=== PATIENT | female | born 1995 | race American Indian/Alaskan Native ===

== ENCOUNTER 2018-04-16 15:44 | Emergency (ER) | payer OTHER ==
[2018-04-16 16:41] LABS: Hemoglobin 13.6 gm/dl (10.1-14.3); Mean Corpuscular HGB Conc 35 % (30-34); Mean Corpuscular Hemoglobin 31 pg (28-32); Mean Corpuscular Volume 90 fl (79-97); Platelet Count 161 K/mm3 (140-440); Red Blood Count 4.34 M/mm3 (3.65-5.03); Red Cell Distribution Width 13.6 % (13.2-15.2)
[2018-04-16 17:03] LABS: BUN/Creatinine Ratio 24; Blood Urea Nitrogen 12 mg/dL (7-17); Calcium 8.2 mg/dL (8.4-10.2); Hemolysis Index 8
[2018-04-16 17:58] LABS: Bacteria,Urine 1+ /HPF (Negative); Bilirubin,Urine NEG (Negative); Blood,Urine SM (Negative); Color,Urine Yellow (Yellow); HCG Qualitative,Urine Negative (Negative); Mucus,Urine 3+ /HPF; Urobilinogen,Urine < 2.0 mg/dL (<2.0)
--- NOTE | 2018-04-16 18:29 | Emergency Department Report ---
ED Seizure HPI - General Chief Complaint: Seizure Stated Complaint: SEIZURE/HEAD/LEG/ARM PAIN Time Seen by Provider: 04/16/18 18:28 Source: patient Mode of arrival: Ambulatory Limitations: No Limitations - History of Present Illness Initial Comments: Patient had no seizure while she was awoke this afternoon. According to the patient's mom who is currently at her besides, patient has not been compliant with taking her Keppra medication. Patient mom said the patient does not like to take her Keppra medication. Complaint: seizure -: Sudden Description of Episode: loss of consciousness, tonic-clonic movement -: minutes(s) (1) Witnessed:: Yes Trauma: Yes (fell on her face.) Seizure History: known seizure disorder Place: work Possible Precipitating Event: head injury, other (Noncompliant with seizure medication.) Associated Symptoms: denies other symptoms Treatments Prior to Arrival: none - Related Data Home Medications Medication Instructions Recorded Confirmed Last Taken LORazepam [Ativan] 0.5 mg PO PRN 04/16/18 04/16/18 Unknown Topiramate [Topamax] 200 mg PO BID 04/16/18 04/16/18 Unknown levETIRAcetam [Keppra] 500 mg PO BID 04/16/18 04/16/18 Unknown Previous Rx's Medication Instructions Recorded Last Taken Type Topiramate [Topamax] 200 mg PO BID #60 tablet 04/16/18 Unknown Rx levETIRAcetam [Keppra] 500 mg PO BID #60 tablet 04/16/18 Unknown Rx Allergies Allergy/AdvReac Type Severity Reaction Status Date / Time No Known Allergies Allergy Unverified 04/16/18 16:04 ED Review of Systems ROS: Stated complaint: SEIZURE/HEAD/LEG/ARM PAIN Other details as noted in HPI Comment: All other systems reviewed and negative Constitutional: denies: chills, fever Eyes: denies: vision change ENT: denies: ear pain, dental pain Respiratory: denies: cough, shortness of breath Cardiovascular: denies: chest pain, palpitations Endocrine: no symptoms reported Gastrointestinal: denies: abdominal pain, nausea, vomiting, diarrhea Genitourinary: denies: urgency, dysuria, frequency, hematuria Musculoskeletal: denies: back pain, joint swelling, arthralgia Skin: denies: rash, lesions, change in color Neurological: headache. denies: numbness, paresthesias Psychiatric: denies: anxiety, depression Hematological/Lymphatic: denies: easy bleeding, easy bruising ED Past Medical Hx - Past Medical History Previous Medical History?: Yes Hx Seizures: Yes - Surgical History Past Surgical History?: No - Social History Smoking Status: Never Smoker Substance Use Type: Prescribed - Medications Home Medications: Home Medications Medication Instructions Recorded Confirmed Last Taken Type LORazepam [Ativan] 0.5 mg PO PRN 04/16/18 04/16/18 Unknown History Topiramate [Topamax] 200 mg PO BID 04/16/18 04/16/18 Unknown History Topiramate [Topamax] 200 mg PO BID #60 tablet 04/16/18 Unknown Rx levETIRAcetam [Keppra] 500 mg PO BID 04/16/18 04/16/18 Unknown History levETIRAcetam [Keppra] 500 mg PO BID #60 tablet 04/16/18 Unknown Rx ED Physical Exam - General Limitations: No Limitations General appearance: alert, in no apparent distress - Head Head exam: Present: normocephalic, other (Facial contusions.) - Eye Eye exam: Present: normal appearance, PERRL, EOMI. Absent: scleral icterus Pupils: Present: normal accommodation - ENT ENT exam: Present: normal exam, normal orophraynx, mucous membranes moist - Neck Neck exam: Present: normal inspection. Absent: tenderness, full ROM - Respiratory Respiratory exam: Present: normal lung sounds bilaterally. Absent: respiratory distress, wheezes, rhonchi - Cardiovascular Cardiovascular Exam: Present: regular rate, normal rhythm, normal heart sounds - GI/Abdominal GI/Abdominal exam: Present: soft, normal bowel sounds. Absent: distended, tenderness, guarding, rebound - Extremities Exam Extremities exam: Present: normal inspection, full ROM, normal capillary refill. Absent: pedal edema - Back Exam Back exam: Present: normal inspection, full ROM. Absent: tenderness, CVA tenderness (R), CVA tenderness (L) - Neurological Exam Neurological exam: Present: alert, oriented X3, CN II-XII intact - Psychiatric Psychiatric exam: Present: normal affect, normal mood, flat affect - Skin Skin exam: Present: warm, dry, intact, normal color. Absent: rash ED Course Vital Signs 04/16/18 04/16/18 04/16/18 16:04 16:44 17:15 Temperature 98.5 F Pulse Rate 84 Respiratory 20 Rate Blood Pressure 87/57 106/66 92/47 Blood Pressure [Left] O2 Sat by Pulse 99 99 Oximetry 04/16/18 04/16/18 04/16/18 18:00 18:07 18:15 Temperature 98.5 F Pulse Rate 84 Respiratory Rate Blood Pressure 113/67 108/63 Blood Pressure 113/67 [Left] O2 Sat by Pulse 99 99 98 Oximetry 04/16/18 04/16/18 04/16/18 18:30 18:45 19:01 Temperature Pulse Rate Respiratory Rate Blood Pressure 101/64 109/66 107/59 Blood Pressure [Left] O2 Sat by Pulse 99 97 97 Oximetry 04/16/18 04/16/18 04/16/18 19:15 20:09 20:17 Temperature 98.7 F Pulse Rate 76 Respiratory 16 Rate Blood Pressure 99/67 104/62 Blood Pressure 104/62 [Left] O2 Sat by Pulse 99 97 Oximetry ED Medical Decision Making - Lab Data Result diagrams: 04/16/18 16:14 04/16/18 16:14 - Radiology Data Radiology results: report reviewed, image reviewed - Medical Decision Making Seizure disorder. Noncompliant with seizure medication. Critical care attestation.: If time is entered above; I have spent that time in minutes in the direct care of this critically ill patient, excluding procedure time. ED Disposition Clinical Impression: Seizure disorder, Noncompliance with medications Disposition: DC-01 TO HOME OR SELFCARE Is pt being admited?: No Does the pt Need Aspirin: No Condition: Stable Instructions: Recurrent Seizures Adult (ED) Additional Instructions: Makinen take your Seizure medication as prescribed. Follow up with your Neurologist tomorrow morning. Return to the ED if your condition worsens. Prescriptions: levETIRAcetam [Keppra] 500 mg PO BID #60 tablet Topiramate [Topamax] 200 mg PO BID #60 tablet Referrals: POLINA MARTINES [Other] - 3-5 Days Forms: Work/School Release Form(ED) Time of Disposition: 22:26
[2018-04-16] MEDS ORDERED: NACL 0.9% 1000 ML 1,000 ML IV ONE (18:30)
[2018-04-16] MEDS ORDERED: KEPPRA 1,000 MG/NS 0.75% 100ML 1,000 MG/100 ML BAG IV ONE (18:31)
--- NOTE | 2018-04-16 20:34 | Cat Scan Report ---
FINAL REPORT EXAM: CT HEAD/BRAIN WO CON HISTORY: headache TECHNIQUE: CT was performed from the foramen magnum through the vertex in the axial plane without the use of intravenous contrast. PRIORS: None. FINDINGS: The jarquin/white matter attenuation pattern is normal. There is no mass lesion or mass effect. There are no abnormal extra-axial fluid collections. There is no evidence of acute intracranial hemorrhage or infarct. The ventricles are of normal size and configuration. The skull and orbits are unremarkable. The visualized paranasal sinuses are clear. IMPRESSION: Normal CT of the head.
--- NOTE | 2018-04-16 20:34 | Cat Scan Report ---
FINAL REPORT EXAM: CT FACIAL BONES WO CON HISTORY: fall with facial injury TECHNIQUE: Helical CT was performed of the facial bones in the axial plane and reconstructed in the sagittal and coronal planes. PRIORS: None. FINDINGS: The orbits, zygomatic arches and mandible are intact. The nasal bones and pterygoid plates are intact. There is no evidence of acute facial fracture. The soft tissues appear normal. The paranasal sinuses are clear. IMPRESSION: No evidence of acute fracture.
[2018-04-16] MEDS ORDERED: K-DUR PO ONE (21:01)
--- NOTE | 2018-04-16 22:10 | Cat Scan Report ---
FINAL REPORT EXAM: CT CERVICAL SPINE WO CON HISTORY: Neck Pain TECHNIQUE: Axial images were performed through the cervical spine. Multiplanar reformats are performed on the acquisition scanner. Total exam DLP 656.27 mGy-cm Comparison: None FINDINGS: C7 vertebral body is not imaged. The skullbase is unremarkable. There is normal alignment of the vertebral bodies. Pedicles are intact. Facets show angle normally. Soft tissues of the upper neck demonstrate multiple small cervical chain lymph nodes without adenopathy. The craniocervical junction is intact. The odontoid peg is intact. IMPRESSION: Incomplete CT cervical spine. C7 is not imaged. The remainder of the cervical spine has an unremarkable appearance.
[2018-04-16 22:44] VITALS: BP 92/53
== END 2018-04-16 22:49 | disposition home or self-care (01) ==
LOC: ED 15:44
DX: G40.909 Epilepsy, unspecified, not intractable, without status epilepticus (principal)
CPT/HCPCS: 36415; 70450; 70486; 72125; 80048; 81001; 81025; 85027; 96365; 99284; J1953; J7030